=== PATIENT | female | born 1965 | race African-American/Black ===

== ENCOUNTER 2017-06-10 05:30 | Observation (INO) | payer BC ==
[~2017-06-10 05:30] MED LIST: CLON0.1T PO; HYDR50TA3 PO; LISI10TA3 PO; PRAV10TA PO
[2017-06-10] MEDS ORDERED: SODIUM CHLORIDE FLUSH PRN IV FLUSH (06:00)
[2017-06-10] MEDS ORDERED: ACETAMINOPHEN 500 MG CPLT PO PRN (06:00)
[2017-06-10 06:33] VITALS: BP 106/59; PULSE 84; RESP 17; TEMP 98.8; O2SAT 95
[2017-06-10 06:58] VITALS: BP 103/59; PULSE 76; RESP 18; TEMP 98.7; O2SAT 99
[2017-06-10 08:14] LABS: TROPONIN I LESS THAN 0.02 NG/ML (0.02-0.05)
[2017-06-10 08:40] VITALS: PULSE 95
[2017-06-10] MEDS ORDERED: SODIUM CHLORIDE FLUSH BID IV FLUSH SCH (09:00)
--- NOTE | 2017-06-10 09:05 | HHI.HP ---
HPI Primary Care Physician Unknown Chief Complaint Chest pain History of Present Illness 52-year-old female with history of diabetes, hypertension, and hyperlipidemia presents to emergency room for further evaluation of chest pain. Onset yesterday afternoon. Location left mammary area. No radiation. Characterized as squeezing. No associated symptoms of nausea, vomiting, dyspnea, or diaphoresis. Duration has been constant. No known precipitating or relieving factors. Denies similar pain in the past. No particular movement, position, or deep breathing makes pain better or worse. Review of Systems General: No fatigue,weakness, fever, chills, or recent illness change in appetite. 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 HEENT: No VINSON, no vision changes, no nasal congestion or drainage, no dysphasia CV: As stated above. No palpitations or dizziness. RESP: No SOB, cough, wheeze, or recent URI. GI: No nausea or vomiting, bowel changes, diarrhea, constipation, pain, distention, melena, blood in the stool : No dysuria, urgency, frequency EXT: No lower leg edema, no paraesthesias MS: No discomfort or change in ROM, injury, fall, or recent trauma NEURO: No difficulty with balance, LOC, motor/sensory deficits PSYCH: No anxiety, depression SKIN: No rashes, no concerning lesions Past Family Social History Allergies: Coded Allergies: acetaminophen (Verified Allergy, Mild, 06/09/17) morphine (Verified Allergy, Mild, 06/09/17) penicillin G (Verified Allergy, Mild, 06/09/17) propoxyphene (Verified Allergy, Mild, 06/09/17) Past Medical History Hypertension, type 2 diabetes, hyperlipidemia, kidney stones Past Surgical History Cholecystectomy, hysterectomy Reported Medications Reported Meds & Active Scripts Active Reported Pravastatin 10 Mg Tab Unknown Dose PO DAILY Hydrochlorothiazide 50 Mg Tab 50 Mg PO DAILY Clonidine (Clonidine HCl) 0.1 Mg Tab 0.1 Mg PO BID Lisinopril 10 Mg Tab 10 Mg PO DAILY Active Ordered Medications Current Medications Medications (Trade) Dose Ordered Sig/Nino Route Start Time Stop Time Status Last Admin (Tylenol) 500 mg Q4H PRN PO 06/10/17 06:00 (Aspirin) 325 mg DAILY PO 06/11/17 09:00 (NS Flush) 2 ml BID IV FLUSH 06/10/17 09:00 (NS Flush) 2 ml UNSCH PRN IV FLUSH 06/10/17 06:00 Family History Noncontributory for early onset cardiovascular disease Social History Known hypertension and hyperlipidemia. Reports type 2 diabetes diagnosis currently controlled with medication. No known coronary artery disease. Lifelong nonsmoker. Denies any alcohol or illegal drug use. Past cardiac testing None Physical Exam Vital Signs Vital Signs Date Time Temp Pulse Resp B/P (MAP) Pulse Ox O2 Delivery O2 Flow Rate FiO2 06/10/17 06:58 98.7 76 18 103/59 (74) 99 06/10/17 06:33 98.8 84 17 106/59 (75) 95 Physical Exam GENERAL: Alert WN, WD, NAD, pleasant, moderately obese, -Americans female HEAD: NC, AT CV: RRR, without murmur, rub, gallop, no JVD, S1-S2 no S3-S4. Chest wall tender with palpation. RESP: Clear lungs throughout bilateral, no crackles, wheeze, rhonchi, symmetrical chest rise, nonlabored, able to speak in full sentences ABD: Soft, NT, ND, no masses, positive bowel tones BACK: No CVAT, no scoliosis EXT: Pulses +24, no dependent edema MS: Normal tone 4 extremities, nontender, no obvious deformities, full range of motion NEURO: CN II through CN XII grossly intact, motor strength 5/5 PSYCH: A+O 3, pleasant affect, appropriate speech, mood, insight and judgment SKIN: Normal turgor, normal texture, no lesions, no rashes Laboratory Laboratory Tests Test 06/10/17 07:20 Total Creatine Kinase 87 Troponin I LESS THAN 0.02 Imaging Last 48 hours Impressions Myocardial Perfusion Scan Nuc Med 06/10/17 0000 Signed Impressions: Service Date/Time: Saturday, June 10, 2017 10:26 - CONCLUSION: 1. No reversible perfusion defects. 2. Normal ejection fraction. RISK CATEGORY: Low (<1%% Annual Mortality Rate) Johann Kemp MD Course EKG Normal sinus rhythm, no ST or T-segment changes Caprini VTE Risk Assessment Caprini VTE Risk Assessment: No/Low Risk (score <= 1) Caprini Risk Assessment Model Point Value = 1 Point Value = 2 Point Value = 3 Point Value = 5 Age 41-60 Minor surgery BMI > 25 kg/m2 Swollen legs Varicose veins or History of unexplained or recurrent spontaneous Oral contraceptives or hormone replacement Sepsis (< 1 month) Serious lung disease, including pneumonia (< 1 month) Abnormal pulmonary function Acute myocardial infarction Congestive heart failure (< 1 month) History of inflammatory bowel disease Medical patient at bed rest Age 61-74 Arthroscopic surgery Major open surgery (> 45 min) Laparoscopic surgery (> 45 min) Malignancy Confined to bed (> 72 hours) Immobilizing plaster cast Central venous access Age >= 75 History of VTE Family history of VTE Factor V Leiden Prothrombin [id number] Lupus anticoagulant Anticardiolipin antibodies Elevated serum homocysteine Heparin-induced thrombocytopenia Other congenital or acquired thrombophilia Stroke (< 1 month) Elective arthroplasty Hip, pelvis, or leg fracture Acute spinal cord injury (< 1 month) Prophylaxis Regimen Total Risk Factor Score Risk Level Prophylaxis Regimen 0-1 Low Early ambulation 2 Moderate Order ONE of the following: *Sequential Compression Device (SCD) *Heparin 5000 units SQ BID 3-4 Higher Order ONE of the following medications: *Heparin 5000 units SQ TID *Enoxaparin/Lovenox 40 mg SQ daily (WT < 150 kg, CrCl > 30 mL/min) *Enoxaparin/Lovenox 30 mg SQ daily (WT < 150 kg, CrCl > 10-29 mL/min) *Enoxaparin/Lovenox 30 mg SQ BID (WT < 150 kg, CrCl > 30 mL/min) AND/OR *Sequential Compression Device (SCD) 5 or more Highest Order ONE of the following medications: *Heparin 5000 units SQ TID (Preferred with Epidurals) *Enoxaparin/Lovenox 40 mg SQ daily (WT < 150 kg, CrCl > 30 mL/min) *Enoxaparin/Lovenox 30 mg SQ daily (WT < 150 kg, CrCl > 10-29 mL/min) *Enoxaparin/Lovenox 30 mg SQ BID (WT < 150 kg, CrCl > 30 mL/min) AND *Sequential Compression Device (SCD) Assessment and Plan Assessment and Plan Atypical chest pain -admitted to chest pain center. Ruled out with 3 sets of EKGs, cardiac enzymes, monitor overnight. Seen and evaluated by Dr. Camden Vegas. Proceed with Lexiscan this a.m. If unremarkable, plan for discharge home with follow-up with PCP. Patient agreeable to plan of care. Millicent Montaño Jun 10, 2017 09:05
[2017-06-10] MEDS ORDERED: NITROGLYCERIN 0.4 MG SL 25 TABS/BTL SL PRN (09:15)
[2017-06-10] MEDS ORDERED: ONDANSETRON HCL 4 MG/2 ML VIAL IV PUSH PRN (09:15)
[2017-06-10] MEDS ORDERED: REGADENOSON INJ 0.4 MG/5 ML SYR ONE (10:37)
--- NOTE | 2017-06-10 12:08 | RADRPT ---
EXAM DATE/TIME: 06/10/2017 10:26 [facility] COMPARISON: No previous studies available for comparison. INDICATIONS : Substernal chest pain. Angina. DOSE: 25.4 mCi Tc99m Myoview at stress. 8.5 mCi Tc99m Myoview at rest. 0.4 mg Lexiscan STRESS SYMPTOMS: Shortness of breath. EJECTION FRACTION: 61% MEDICAL HISTORY : Hypertension. Diabetes mellitus type 2. SURGICAL HISTORY : Hysterectomy. Cholecystectomy. ENCOUNTER: Initial ACUITY: 1 day PAIN SCALE: 6/10 LOCATION: Substernal chest TECHNIQUE: The patient underwent pharmacologic stress with infusion of prescribed dose. Continuous ECG tracing was monitored during stress. Gated SPECT imaging was performed after stress and conventional SPECT i maging was performed at rest. The examination was performed on a SPECT/CT scanner, both attenuation and non-corrected datasets were reviewed. FINDINGS: DISTRIBUTION: The maximum perfused segment at stress is in the anterolateral wall. PERFUSION STUDY: The pattern of perfusion at stress is within normal limits. GATED STUDY: There is intact wall motion and thickening without hypokinetic or dyskinetic segments. CONCLUSION: 1. No reversible perfusion defects. 2. Normal ejection fraction. RISK CATEGORY: Low (<1% Annual Mortality Rate) Johann Kemp MD on June 10, 2017 at 12:06 Board Certified Radiologist. This report was verified electronically.
[2017-06-10 12:47] LABS: TROPONIN I LESS THAN 0.02 NG/ML (0.02-0.05)
--- NOTE | 2017-06-10 13:05 | HHI.DCPOC ---
Discharge Care Plan Diagnosis: (1) Atypical chest pain Goals to Promote Your Health * To prevent worsening of your condition and complications * To maintain your health at the optimal level Directions to Meet Your Goals Take your medications as prescribed Follow your dietary instruction Follow activity as directed Keep your appointments as scheduled Take your immunizations and boosters as scheduled If your symptoms worsen call your PCP, if no PCP go to Urgent Care Center or Emergency Room Smoking is Dangerous to Your Health. Avoid second hand smoke Call the 24-hour hour crisis hotline for domestic abuse at Millicent Montaño Jun 10, 2017 13:05
--- NOTE | 2017-06-10 16:13 | EKG ---
Date Performed: 06/10/2017 Time Performed: 09:45:39 PTAGE: 52 years EKG: Sinus rhythm NORMAL ECG PREVIOUS TRACING : 06/10/2017 06.40 Since previous tracing, no significant change noted DOCTOR: Camden Vegas Interpretating Date/Time 06/10/2017 16:12:46
--- NOTE | 2017-06-10 16:14 | EKG ---
Date Performed: 06/10/2017 Time Performed: 06:40:03 PTAGE: 52 years EKG: Sinus rhythm NORMAL ECG PREVIOUS TRACING : 07/03/2012 08.00 Since previous tracing, no significant change noted DOCTOR: Camden Vegas Interpretating Date/Time 06/10/2017 16:13:10
--- NOTE | 2017-06-10 16:26 | TR ---
Date Performed: 06/10/2017 Time Performed: 10:47:43 DOCTOR: Camden Vegas DRUG LIST: CLINICAL HISTORY: ANGINA REASON FOR TEST: Angina REASON FOR ENDING: OBSERVATION: CONCLUSION: Lexiscan stress test was performed under standard four minute protocol. Radionuclid e was injected one minute prior to ending the test. No electrocardiographic abormalities were present to suggest ischemia. Nuclear imaging and interpretation are pending. COMMENTS:
[2017-06-11] MEDS ORDERED: ASPIRIN 325 MG TAB PO SCH (09:00)
== END 2017-06-10 14:37 | disposition home or self-care (01) ==
LOC: NEDDLT 05:30 → NEPFCDU 05:40
PROVIDERS: ADMIT Internal Medicine Cardiovascular Disease; ATTEND Internal Medicine Cardiovascular Disease
DX: R07.89 Other chest pain (principal); R06.02 Shortness of breath; I20.9 Angina pectoris, unspecified; I10 Essential (primary) hypertension; E78.5 Hyperlipidemia, unspecified; E11.9 Type 2 diabetes mellitus without complications; Z79.899 Other long term (current) drug therapy; Z88.0 Allergy status to penicillin; Z88.5 Allergy status to narcotic agent; Z88.6 Allergy status to analgesic agent
CPT/HCPCS: 78452; 82550; 84484; 93005; 93017; A9502; G0378; J2785